=== PATIENT | male | born 1980 | race Caucasian/White ===

== ENCOUNTER 2017-08-21 17:32 | Emergency (ER) | payer SELFPAY ==
[~2017-08-21] VITALS: Ht 188 cm; Wt 98.7 kg
[2017-08-21 17:37] VITALS: BP 133/73; PULSE 95; RESP 20; TEMP 98.7; O2SAT 99
[2017-08-21 17:49] VITALS: BP 142/77; PULSE 101; RESP 18; O2SAT 99
[2017-08-21 18:28] LABS: AUTOMATED NEUTROPHIL # 12.4 TH/MM3 (1.8-7.7); BASOPHIL # 0.2 TH/MM3 (0-0.2); BASOPHIL % 1.4 % (0.0-2.0); EOSINOPHIL # 0.1 TH/MM3 (0-0.4); EOSINOPHIL % 0.7 % (0.0-4.0); HEMOGLOBIN 12.9 GM/DL (13.0-17.0); LYMPH % 13.6 % (9.0-44.0); LYMPHOCYTE # 2.2 TH/MM3 (1.0-4.8); MEAN CELL VOLUME 84.4 FL (80.0-100.0); MEAN CORPUSCULAR HEMOGLOBIN 28.6 PG (27.0-34.0); MEAN CORPUSCULAR HGB CONC 33.8 % (32.0-36.0); MEAN PLATELET VOLUME 7.1 FL (7.0-11.0); MONO % 7.4 % (0.0-8.0); MONOCYTE # 1.2 TH/MM3 (0-0.9); NEUT % 76.9 % (16.0-70.0); PLATELET COUNT 213 TH/MM3 (150-450); RED CELL DISTRIBUTION WIDTH 12.9 % (11.6-17.2); WHITE BLOOD COUNT 16.1 TH/MM3 (4.0-11.0)
[2017-08-21 18:36] LABS: CHLORIDE 105 MEQ/L (98-107); SODIUM (NA) 139 MEQ/L (136-145)
[2017-08-21 18:39] LABS: CALCIUM 8.8 MG/DL (8.5-10.1)
[2017-08-21 18:40] LABS: ALBUMIN 4.1 GM/DL (3.4-5.0); BICARBONATE 27.7 MEQ/L (21.0-32.0); BLOOD UREA NITROGEN 17 MG/DL (7-18); GLUCOSE,RANDOM 117 MG/DL (74-106)
[2017-08-21 18:43] LABS: ALT (GPT) 44 U/L (12-78); AST (GOT) 38 U/L (15-37); CREATININE 0.94 MG/DL (0.60-1.30); GLOMERULAR FILTRATION RATE 90 ML/MIN (>89)
[2017-08-21 18:45] LABS: TOTAL BILIRUBIN ADULT 0.5 MG/DL (0.2-1.0); TOTAL PROTEIN 7.8 GM/DL (6.4-8.2)
[2017-08-21 18:46] LABS: ALKALINE PHOSPHATASE 56 U/L (45-117)
--- NOTE | 2017-08-21 18:53 | RADRPT ---
EXAM DATE/TIME: 08/21/2017 18:33 [facility] COMPARISON: No previous studies available for comparison. INDICATIONS : Trauma. Fell off a 8 foot ladder. RADIATION DOSE: 60.24 CTDIvol (mGy) MEDICAL HISTORY : None SURGICAL HISTORY : None. ENCOUNTER: Initial ACUITY: 1 day PAIN SCALE: 2/10 LOCATION: cranial TECHNIQUE: Multiple contiguous axial images were obtained of the head. Using automated exposure control and adj ustment of the mA and/or kV according to patient size, radiation dose was kept as low as reasonably a chievable to obtain optimal diagnostic quality images. DICOM format image data is available electro nically for review and comparison. FINDINGS: CEREBRUM: The ventricles are normal for age. No evidence of midline shift, mass lesion, hemorrhage or acute in farction. No extra-axial fluid collections are seen. POSTERIOR FOSSA: The cerebellum and brainstem are intact. The 4th ventricle is midline. The cerebellopontine angle i s unremarkable. EXTRACRANIAL: Mucoperiosteal thickening seen in the sinuses. There are mucus retention cysts of both sphenoid air c ells. SKULL: The calvaria is intact. No evidence of skull fracture. CONCLUSION: 1. No bleed or other acute intracranial abnormality. 2. Chronic paranasal sinus disease. Gio Paiz MD on August 21, 2017 at 18:50 Board Certified Radiologist. This report was verified electronically.
[2017-08-21] MEDS ORDERED: IOHEXOL 350 MG/ML 10 ML VIAL (for RAD DIAG) IVCONTRAST ONE (18:56)
--- NOTE | 2017-08-21 19:01 | RADRPT ---
EXAM DATE/TIME: 08/21/2017 18:33 [facility] COMPARISON: No previous studies available for comparison. INDICATIONS : Trauma. Fell off a 8 foot ladder. RADIATION DOSE: 25.81 CTDIvol (mGy) MEDICAL HISTORY : None SURGICAL HISTORY : None. ENCOUNTER: Initial ACUITY: 1 day PAIN SCALE: 4/10 LOCATION: Bilateral neck TECHNIQUE: Volumetric scanning of the cervical spine was performed. Multiplanar reconstructions in the sagittal, coronal and oblique axial planes were performed. Using automated exposure control and adjustment o f the mA and/or kV according to patient size, radiation dose was kept as low as reasonably achievable to obtain optimal diagnostic quality images. DICOM format image data is available electronically f or review and comparison. FINDINGS: VERTEBRAE: Normal vertebral body height. ALIGNMENT: No evidence of subluxation. There is disc space narrowing with uncovertebral and facet osteoarthritis, moderate at C6/C7 and mild at the other levels. A moderate sized posterior disc protrusion is seen at C7/T1. There are very sma ll, broad posterior disc osteophyte complexes at the other levels. CONCLUSION: 1. No fracture or subluxation of the cervical spine. 2. Multilevel degenerative changes as above. 3. Age-indeterminate moderate-sized posterior disc protrusion at C7/T1. Gio Paiz MD on August 21, 2017 at 18:57 Board Certified Radiologist. This report was verified electronically.
--- NOTE | 2017-08-21 19:05 | RADRPT ---
EXAM DATE/TIME: 08/21/2017 18:42 [facility] COMPARISON: No previous studies available for comparison. INDICATIONS : Trauma. Fell off a 8 foot ladder. Left rib pain. Left axillary laceration. IV CONTRAST: 70 cc Omnipaque 350 (iohexol) IV RADIATION DOSE: 7.98 CTDIvol (mGy) MEDICAL HISTORY : None SURGICAL HISTORY : None. ENCOUNTER: Initial ACUITY: 1 day PAIN SCALE: 5/10 LOCATION: Left chest TECHNIQUE: Volumetric scanning of the chest was performed. Using automated exposure control and adjustment of t he mA and/or kV according to patient size, radiation dose was kept as low as reasonably achievable to obtain optimal diagnostic quality images. DICOM format image data is available electronically for review and comparison. Follow-up recommendations for detected pulmonary nodules are based at a minimum on nodule size and pa tient risk factors according to Fleischner Society Guidelines. FINDINGS: LUNGS: There is no consolidation or pneumothorax. No concerning pulmonary nodule is visualized. PLEURA: There is no pleural thickening or pleural effusion. MEDIASTINUM: The heart and great vessels demonstrate no acute abnormality. There is no mediastinal or hilar lymph adenopathy. AXILLAE: Within normal limits. No lymphadenopathy. SKELETAL: Limits and other visualized osseous structures are intact. There is a laceration of the subcutaneous tissues in the midaxillary line. Patchy bubbles of gas are present. The neurovascular structures are grossly intact. I don't see any active bleeding. Muscles are grossly within normal limits. MISCELLANEOUS: The visualized upper abdominal organs demonstrate no acute abnormality. CONCLUSION: 1. Focal soft tissue injury in the left axilla, appears to be below the neurovascular bundle and prim arily involves the subcutaneous fat. The no active bleeding or organized hematoma. Deep soft tissues and underlying ribs appear intact. 2. No intrathoracic abnormality demonstrated. Gio Paiz MD on August 21, 2017 at 19:00 Board Certified Radiologist. This report was verified electronically.
[2017-08-21] MEDS ORDERED: CEPH-460 PO (19:19)
--- NOTE | 2017-08-21 19:19 | PD ---
HPI Chief Complaint: Fall Time Seen by Provider: 17:45 Travel History International Travel<30 days: No Contact w/Intl Traveler<30days: No Traveled to known affect area: No History of Present Illness HPI Patient is a 37-year-old male who comes in after a fall from a ladder. He says he was climbing up an 8 foot ladder, but was not at the top when the ladder slipped and he fell. He says that he fell onto his left side. He is not sure if he fell onto the fence or some part of the latter, but it cut his left side. He denies hitting his head or any loss of consciousness. He was able to get up and walk after he fell off the ladder. He denies any neck pain, back pain, leg pain or arm pain. He denies any difficulty breathing. He does not know when his last tetanus shot was. Severity is mild. PFSH Past Medical History Medical History: Denies Significant Hx Diminished Hearing: No Tetanus Vaccination: Unknown ?: Not Past Surgical History Surgical History: No Previous Surgery Social History Alcohol Use: No Tobacco Use: Yes (1/2 PK) Substance Use: No Allergies-Medications (Allergen,Severity, Reaction): Coded Allergies: No Known Allergies (Verified Allergy, Mild, 08/21/17) Reported Meds & Prescriptions Reported Meds & Active Scripts Active Keflex (Cephalexin) 500 Mg Capsule 500 Mg PO Q6H 5 Days Review of Systems Except as stated in HPI: all other systems reviewed are Neg General / Constitutional: No: Fever, Chills Eyes: No: Blurred Vision HENT: No: Headaches, Lightheadedness Respiratory: No: Shortness of Breath Gastrointestinal: No: Nausea, Vomiting, Abdominal Pain Skin: Positive Other (Puncture wound) Neurologic: No: Weakness, Dizziness Physical Exam Narrative GENERAL: Awake and alert, in no acute distress. SKIN: Area of abrasions and a 1 cm puncture wound under the left axilla. No active bleeding. HEAD: Atraumatic. Normocephalic. EYES: Pupils equal and round. No scleral icterus. Extraocular movements intact. ENT: Mucous membranes pink and moist. NECK: Trachea midline. No JVD. No cervical spine tenderness. CARDIOVASCULAR: Regular rate and rhythm. No murmur appreciated. No chest wall tenderness. RESPIRATORY: No accessory muscle use. Clear to auscultation. Breath sounds equal bilaterally. GASTROINTESTINAL: Abdomen soft, non-tender, nondistended. MUSCULOSKELETAL: No obvious deformities. No clubbing. No cyanosis. No edema. NEUROLOGICAL: Awake and alert. No obvious cranial nerve deficits. Motor grossly within normal limits. Normal speech. PSYCHIATRIC: Appropriate mood and affect; insight and judgment normal. Data Data Last Documented VS Vital Signs Date Time Temp Pulse Resp B/P (MAP) Pulse Ox O2 Delivery O2 Flow Rate FiO2 08/21/17 19:49 77 18 124/74 (91) 98 08/21/17 17:49 Room Air 08/21/17 17:[address] Brain W/O Iv Contrast(Rout) (08/21/17 ) Ct Cerv Spine W/O Contrast (08/21/17 ) Ct Thorax/ Chest W Iv Contrast (08/21/17 ) Iv Access Insert/Monitor (08/21/17 18:09) Complete Blood Count With Diff (08/21/17 18:09) Comprehensive Metabolic Panel (08/21/17 18:09) Iohexol 350 Inj (Omnipaque 350 Inj) (08/21/17 18:56) Tetanus/Diphtheria Tox Adult (Tetanus/Di (08/21/17 19:30) Ed Discharge Order (08/21/17 19:25) Labs Laboratory Tests Test 08/21/17 18:23 White Blood Count 16.1 TH/MM3 Red Blood Count 4.50 MIL/MM3 Hemoglobin 12.9 GM/DL Hematocrit 38.0 % Mean Corpuscular Volume 84.4 FL Mean Corpuscular Hemoglobin 28.6 PG Mean Corpuscular Hemoglobin Concent 33.8 % Red Cell Distribution Width 12.9 % Platelet Count 213 TH/MM3 Mean Platelet Volume 7.1 FL Neutrophils (%) (Auto) 76.9 % Lymphocytes (%) (Auto) 13.6 % Monocytes (%) (Auto) 7.4 % Eosinophils (%) (Auto) 0.7 % Basophils (%) (Auto) 1.4 % Neutrophils # (Auto) 12.4 TH/MM3 Lymphocytes # (Auto) 2.2 TH/MM3 Monocytes # (Auto) 1.2 TH/MM3 Eosinophils # (Auto) 0.1 TH/MM3 Basophils # (Auto) 0.2 TH/MM3 CBC Comment DIFF FINAL Differential Comment Blood Urea Nitrogen 17 MG/DL Creatinine 0.94 MG/DL Random Glucose 117 MG/DL Total Protein 7.8 GM/DL Albumin 4.1 GM/DL Calcium Level 8.8 MG/DL Alkaline Phosphatase 56 U/L Aspartate Amino Transf (AST/SGOT) 38 U/L Alanine Aminotransferase (ALT/SGPT) 44 U/L Total Bilirubin 0.5 MG/DL Sodium Level 139 MEQ/L Potassium Level 3.7 MEQ/L Chloride Level 105 MEQ/L Carbon Dioxide Level 27.7 MEQ/L Anion Gap 6 MEQ/L Estimat Glomerular Filtration Rate 90 ML/MIN [facility] Medical Decision Making Medical Screen Exam Complete: Yes Emergency Medical Condition: Yes Medical Record Reviewed: Yes Differential Diagnosis Laceration versus head injury versus pneumothorax versus rib fracture Narrative Course Patient is a 37-year-old male comes in after falling from a ladder today. Exam shows an area of abrasions as well as a small puncture wound. CT head and C- spine performed show no acute abnormalities. CT of his chest shows no acute abnormalities. Last [address] 08/21/17 0000 Signed Impressions: Service Date/Time: Monday, August 21, 2017 18:33 - CONCLUSION: 1. No bleed or other acute intracranial abnormality. 2. Chronic paranasal sinus disease. Gio Paiz MD Chest CT 08/21/17 0000 Signed Impressions: Service Date/Time: Monday, August 21, 2017 18:42 - CONCLUSION: 1. Focal soft tissue injury in the left axilla, appears to be below the neurovascular bundle and primarily involves the subcutaneous fat. The no active bleeding or organized hematoma. Deep soft tissues and underlying ribs appear intact. 2. No intrathoracic abnormality demonstrated. Gio Paiz MD Cervical Spine CT 08/21/17 0000 Signed Impressions: Service Date/Time: Monday, August 21, 2017 18:33 - CONCLUSION: 1. No fracture or subluxation of the cervical spine. 2. Multilevel degenerative changes as above. 3. Age-indeterminate moderate-sized posterior disc protrusion at C7/T1. Gio Paiz MD Labs do show a slight elevation in white blood cell count, believe this is a stress reaction as he has not had any infectious symptoms. Patient did not want any pain medicine. Tetanus updated. Wound cleaned thoroughly and one staple placed for closure. Patient advised to return for any signs of infection. Given a prescription for Keflex for prophylaxis. Advised return in 7-10 days for staple removal. Advised return anytime for any worsening symptoms. Procedures Procedure Narrative LACERATION LOCATION: Left axilla LENGTH: 1 cm, circular NUMBER OF STITCHES/LUIS: 2 REPAIR: The area of the laceration was prepped with sterile water and sterilely draped. The wound was copiously irrigated and explored without evidence of foreign body, tendon injury or neurovascular injury. The wound was closed using one staple. This was a single layer repair. A sterile dressing was applied. The patient was advised to keep the dressing clean and dry. Patient tolerated the procedure well. Diagnosis Primary Impression: Fall Qualified Codes: W19.XXXA - Unspecified fall, initial encounter Additional Impression: Puncture wound Patient Instructions: General Instructions, Staple Care (ED) Additional Instructions: Take all the antibiotic. Keep your wound clean and dry. Return anytime for any signs of infection or any worsening symptoms. Scripts Cephalexin (Keflex) 500 Mg Capsule 500 MG PO Q6H for Infection for 5 Days, #20 CAP 0 Refills Prov: Amita Toth MD 08/21/17 Disposition: 01 DISCHARGE HOME Condition: Stable Amita Toth MD Aug 21, 2017 19:19
[2017-08-21] MEDS ORDERED: TETANUS/DIPHTHERIA TOXOID ADULT 0.5 ML VIAL IM ONE (19:30)
[2017-08-21 19:49] VITALS: BP 124/74
== END 2017-08-21 19:51 | disposition home or self-care (01) ==
LOC: PHED 17:32
DX: S41.132A Puncture wound without foreign body of left upper arm, initial encounter (principal); W11.XXXA Fall on and from ladder, initial encounter; Z23 Encounter for immunization
CPT/HCPCS: 12001; 70450; 71260; 72125; 80053; 85025; 90471; 90714; 99284; Q9967